=== PATIENT | female | born 1965 | race American Indian/Alaskan Native ===

== ENCOUNTER 2019-07-02 23:15 | Inpatient (IN) | payer SELFPAY ==
[2019-07-03 00:08] LABS: Basophils % (Auto) 0.5 % (0.0-1.8); Eosinophils % (Auto) 0.3 % (0.0-4.3); Hematocrit 23.9 % (30.3-42.9); Lymphocytes # (Auto) 2.7 K/mm3 (1.2-5.4); Lymphocytes % (Auto) 25.5 % (13.4-35.0); Mean Corpuscular HGB Conc 33 % (30-34); Mean Corpuscular Volume 93 fl (79-97); Monocytes # (Auto) 0.4 K/mm3 (0.0-0.8); Platelet Count 305 K/mm3 (140-440); Red Blood Count 2.57 M/mm3 (3.65-5.03); Red Cell Distribution Width 13.3 % (13.2-15.2)
[2019-07-03 00:09] LABS: Basophils # (Auto) 0.1 K/mm3 (0.0-0.1)
[2019-07-03 00:11] LABS: BUN/Creatinine Ratio 12; Blood Urea Nitrogen 7 mg/dL (7-17); Calcium 8.3 mg/dL (8.4-10.2); Hemolysis Index 27
[2019-07-03] MEDS ORDERED: SODIUM CHLORIDE 0.9% 1000 ML 1,000 ML IV ONE (01:50)
--- NOTE | 2019-07-03 01:56 | Emergency Department Report ---
HPI - General Chief Complaint: GI Bleed Time Seen by Provider: 07/03/19 01:41 - [facility] HPI: Room 24 The patient is a 54-year-old female presented with a chief complaint of rectal bleeding. Patient was discharged earlier this afternoon after being admitted for GI bleed. The patient was instructed to return to the emergency room should her bleeding return. The patient states this afternoon while out running errands she had to use the commode 3 times and she passed blood with clots all 3 times. The patient states she went home again feel dizzy, weak and nauseous without vomiting. Patient states she had 2 more episodes of passing blood with clots at home prompting her to come to the emergency department Location: [See above] Duration: [See above] Quality: [See above] Severity: [See above] Timing: [See above] Context: [See above] Modifying factors: [See above] Associated signs and symptoms: [see above] ED Past Medical Hx - Past Medical History Previous Medical History?: Yes Hx Diabetes: Yes - Surgical History Past Surgical History?: Yes Hx Cholecystectomy: Yes - Family History Family history: no significant - Social History Smoking Status: Never Smoker Substance Use Type: None - Medications Home Medications: Home Medications Medication Instructions Recorded Confirmed Last Taken Type Pantoprazole [Protonix TAB] 40 mg PO DAILY #30 tablet 07/02/19 Unknown Rx metFORMIN [Glucophage] 500 mg PO BIDDIAB #30 tablet 07/02/19 Unknown Rx ED Review of Systems ROS: Stated complaint: RECTAL BLEEDING Other details as noted in HPI Constitutional: weakness Eyes: denies: eye pain ENT: denies: throat pain Respiratory: no symptoms reported Cardiovascular: denies: chest pain Endocrine: no symptoms reported Gastrointestinal: abdominal pain, nausea, hematochezia. denies: vomiting Genitourinary: denies: dysuria Musculoskeletal: denies: back pain Neurological: denies: headache Physical Exam - Physical Exam Vital Signs: Vital Signs 07/02/19 23:23 Temperature 98.1 F Pulse Rate 87 Respiratory 20 Rate Blood Pressure 124/65 O2 Sat by Pulse 97 Oximetry Physical Exam: GENERAL: The patient is well-developed well-nourished female lying on stretcher not appearing to be in acute distress. [] HEENT: Normocephalic. Atraumatic. Extraocular motions are intact. Patient has moist mucous membranes. NECK: Supple. Trachea midline CHEST/LUNGS: Clear to auscultation. There is no respiratory distress noted. HEART/CARDIOVASCULAR: Regular. There is no tachycardia. There is no gallop rub or murmur. ABDOMEN: Abdomen is soft, with mild discomfort to palpation right upper quadrant. Patient has normal bowel sounds. There is no abdominal distention. SKIN: There is no rash. There is no edema. There is no diaphoresis. NEURO: The patient is awake, alert, and oriented. The patient is cooperative. The patient has no focal neurologic deficits. The patient has normal speech and gait. MUSCULOSKELETAL: There is no evidence of acute injury. ED Course Vital Signs 07/02/19 23:23 Temperature 98.1 F Pulse Rate 87 Respiratory 20 Rate Blood Pressure 124/65 O2 Sat by Pulse 97 Oximetry ED Medical Decision Making - Lab Data Result diagrams: 07/02/19 23:44 07/02/19 23:44 - Differential Diagnosis GI bleed Critical care attestation.: If time is entered above; I have spent that time in minutes in the direct care of this critically ill patient, excluding procedure time. ED Disposition Clinical Impression: Lower GI bleeding, Symptomatic anemia Disposition: OP ADMIT IP TO THIS HOSP Is pt being admited?: Yes Does the pt Need Aspirin: No Condition: Fair Referrals: PRIMARY CARE,MD [Primary Care Provider] - 3-5 Days Time of Disposition: 01:57 (hospitalist paged (Dr Mcmanus))
[2019-07-03] MEDS ORDERED: DEXTROSE 50% IN WATER (25GM) 50 ML SYRINGE IV PRN (02:58)
[2019-07-03] MEDS: INSULIN REGULAR, HUMAN 100 UNITS/1 ML SUB-Q SCH ×6 (03:54→22:57)
[2019-07-03] MEDS: ONDANSETRON 4 MG/2 ML INJ IV PRN (03:55)
[2019-07-03] MEDS: PANTOPRAZOLE 40 MG INJ IV SCH ×3 (04:56→21:22)
--- NOTE | 2019-07-03 05:08 | History and Physical Report ---
CHIEF COMPLAINT: Rectal bleeding. HISTORY OF PRESENT ILLNESS: The patient is a 54-year-old female who was recently discharged from hospital on 07/02/2019 after she presented 24 hours earlier for rectal bleeding and states she was seen by the buffing wheel inspector who did a colonoscopy and then she said that her bleeding reduced in intensity and she was discharged and given a prescription and she had just filled the prescription and was about to start taking the medications when the bleeding started again on 07/02/2019 and she came right back to the Emergency Room and was then presented for admission. There was no history of nausea or vomiting and no history of abdominal pain. The patient states she did not take any nonsteroidal anti-inflammatory agent or drink any alcohol. There is no history of shortness of breath or chest pain, and the patient said that her rectal bleeding was coming out of clots of blood and occurred mainly when she tries to move her bowel. There is history of associated dizziness and weakness and nausea, but no vomiting. PAST MEDICAL HISTORY: Pertinent for diabetes mellitus. PAST SURGICAL HISTORY: Pertinent for cholecystectomy. FAMILY HISTORY: Noncontributory. SOCIAL HISTORY: The patient does not smoke, does not drink alcohol and does not use illicit drug. MEDICATIONS: The patient is on pantoprazole 40 mg daily and Glucophage 500 mg twice daily. ALLERGIES: There are no known drug allergies. REVIEW OF SYSTEMS: CONSTITUTIONAL: There is no fever, no chills, no diaphoresis. HEENT: There is no headache or sore throat. CARDIOVASCULAR SYSTEM: There is no chest pain or orthopnea. RESPIRATORY SYSTEM: There is no shortness of breath or cough. GASTROINTESTINAL SYSTEM: There is nausea, but no vomiting, no abdominal pain, and no diarrhea or constipation, but there is rectal bleeding. NEUROLOGICAL SYSTEM: There is weakness and there is dizziness, but no altered mental status. MUSCULOSKELETAL SYSTEM: There is no joint pain or swelling. DERMATOLOGICAL SYSTEM: There is no skin rash or itching. GENITOURINARY SYSTEM: There is no dysuria, hematuria, or flank pain. Rest of system review is normal. PHYSICAL EXAMINATION: GENERAL: At the time of exam, the patient was found to be alert, oriented x 3 and not in acute distress. VITAL SIGNS: At the initial time of presentation showed temperature of 98.1 degrees Fahrenheit, pulse of 87, respirations 20, blood pressure 124/65, O2 sat of 97% on room air. HEENT: Showed pupils to be equal, round, reactive to light and accommodating. Extraocular muscles are intact. NECK: Supple with no JVD or carotid bruit. CARDIOVASCULAR SYSTEM: Showed normal first and second heart sounds with no gallops or murmurs. RESPIRATORY SYSTEM: Show good air entry on both sides of the lungs with no abnormal breath sounds. GASTROINTESTINAL SYSTEM: Show abdomen to be full, soft, nontender with no organomegaly or rigidity. NEUROLOGIC: Shows no focal deficit. MUSCULOSKELETAL SYSTEM: Show no joint swelling or tenderness. DERMATOLOGICAL SYSTEM: Showing no skin rash or itching. GENITOURINARY SYSTEM: Show no costovertebral angle tenderness. PERTINENT LABORATORY AND IMAGING STUDIES: The patient has CBC done with normal white count, low hemoglobin of 8.0 and low hematocrit of 23.9 and rest of CBC differential was unremarkable. The patient's chemistry show elevated blood glucose level of 283 DIAGNOSES: 1. Rectal bleeding. 2. Diabetes mellitus with hyperglycemia. PLAN OF CARE: 1. The patient will be admitted to telemetry. 2. The patient will remain n.p.o. until seen by the buffing wheel inspector. 3. The patient will have Gastroenterology consult with [facility] with the name of Dr. Joo Choi listed ( same doctor that did the procedure on the patient). 4. The patient will have hemoglobin and hematocrit checked every 6 hours x 3 more levels. 5. The patient will be on Protonix 40 mg IV twice daily. 6. The patient will be on IV normal saline running at 125 mL an hour. 7. The patient will be on IV morphine 2 mg every 4 hours as needed for pain and IV Zofran 4 mg every 8 hours for nausea and vomiting. 8. The patient will be on Accu-Chek q. 4 hours followed by low-dose sliding scale using regular insulin coverage. 9. The patient will be on oxygen by nasal cannula at 2 liters per minute. JOB# [id number] OCN/NTS MTDD
[2019-07-03] MEDS: SODIUM CHLORIDE 0.9% 1000 ML 1,000 ML IV SCH (07:04)
[2019-07-03 07:46] LABS: Hemoglobin 6.5 gm/dl (10.1-14.3)
[2019-07-03 07:53] LABS: Hematocrit 19.4 % (30.3-42.9)
[2019-07-03] MEDS ORDERED: SODIUM CHLORIDE 0.9% 500 ML 500 ML IV NR (07:58)
--- NOTE | 2019-07-03 11:58 | Progress Note ---
Assessment and Plan - Patient Problems (1) Lower GI bleeding Current Visit: Yes Status: Acute Plan to address problem: Patient lower GI bleeding exact etiology unknown. Consult GI to evaluate etiology rectal polyp. We'll currently transfuse patient 1 unit of packed red blood cells and follow serial H&H posttransfusion. Otherwise patient hemodialys is stable now. (2) Symptomatic anemia Current Visit: Yes Status: Acute Plan to address problem: Transfuse as indicated above. Follow-up GI evaluation. (3) Hyperglycemia due to type 2 diabetes mellitus Current Visit: No Status: Acute Plan to address problem: Blood sugars fair control. Would titrate accordingly. Has sliding-scale insulin now we'll add low-dose long-acting insulin over p.m. History Interval history: Patient 54-year-old presented with rectal bleeding and symptomatic anemia today. Patient was recently discharged yesterday from hospital for rectal bleeding had colonoscopy which show polyps. Patient had 3 bowel movements and all 3 we'll feel with clots of blood. Patient decided to come back to emergency room and was admitted. Hospital course complicated last night over drop in H&H. This morning patient's hemoglobin and hematocrit is 6 and 19. And we'll transfuse at this time. Otherwise hemodynamically stable. Hospitalist Physical - Constitutional Vitals: Temp Pulse Resp BP Pulse Ox 98.8 F 75 18 134/61 93 07/03/19 08:18 07/03/19 08:18 07/03/19 08:18 07/03/19 08:18 07/03/19 08:18 General appearance: Present: no acute distress, well-nourished - EENT Eyes: Present: PERRL, EOM intact. Absent: scleral icterus, conjunctival injection, exopthalmos ENT: hearing intact, clear oral mucosa, dentition normal - Neck Neck: Present: supple - Respiratory Respiratory: bilateral: CTA - Cardiovascular Rhythm: regular - Extremities Extremities: no ischemia, pulses intact, pulses symmetrical, No edema, normal temperature, normal color, Full ROM Peripheral Pulses: within normal limits - Abdominal General gastrointestinal: soft, non-tender, non-distended, normal bowel sounds, no hepatomegaly, no splenomegaly, no mass - Integumentary Integumentary: Present: clear, warm, dry - Psychiatric Psychiatric: appropriate mood/affect, intact judgment & insight, memory intact - Neurologic Neurologic: CNII-XII intact, moves all extremities, gait normal Results - Labs CBC & Chem 7: 07/03/19 07:12 07/02/19 23:44 Labs: Laboratory Last Values WBC 10.4 K/mm3 (4.5-11.0) 07/02/19 23:44 RBC 2.57 M/mm3 (3.65-5.03) L 07/02/19 23:44 Hgb 6.5 gm/dl (10.1-14.3) L 07/03/19 07:12 Hct 19.4 % (30.3-42.9) L* 07/03/19 07:12 MCV 93 fl (79-97) 07/02/19 23:44 MCH 31 pg (28-32) 07/02/19 23:44 MCHC 33 % (30-34) 07/02/19 23:44 RDW 13.3 % (13.2-15.2) 07/02/19 23:44 Plt Count 305 K/mm3 (140-440) 07/02/19 23:44 Lymph % (Auto) 25.5 % (13.4-35.0) 07/02/19 23:44 [place] % (Auto) 4.0 % (0.0-7.3) 07/02/19 23:44 Eos % (Auto) 0.3 % (0.0-4.3) 07/02/19 23:44 Baso % (Auto) 0.5 % (0.0-1.8) 07/02/19 23:44 Lymph # 2.7 K/mm3 (1.2-5.4) 07/02/19 23:44 [place] # 0.4 K/mm3 (0.0-0.8) 07/02/19 23:44 Eos # 0.0 K/mm3 (0.0-0.4) 07/02/19 23:44 Baso # 0.1 K/mm3 (0.0-0.1) 07/02/19 23:44 Seg Neutrophils % 69.7 % (40.0-70.0) 07/02/19 23:44 Seg Neutrophils # 7.3 K/mm3 (1.8-7.7) 07/02/19 23:44 Sodium 141 mmol/L (137-145) 07/02/19 23:44 Potassium 4.1 mmol/L (3.6-5.0) 07/02/19 23:44 Chloride 105.7 mmol/L (98-107) 07/02/19 23:44 Carbon Dioxide 25 mmol/L (22-30) 07/02/19 23:44 14 mmol/L 07/02/19 23:44 BUN 7 mg/dL (7-17) 07/02/19 23:44 0.6 mg/dL (0.7-1.2) L 07/02/19 23:44 Estimated GFR > 60 ml/min 07/02/19 23:44 12 % 07/02/19 23:44 Glucose 283 mg/dL (65-100) H 07/02/19 23:44 POC Glucose 269 (70-105) H 07/03/19 06:24 Calcium 8.3 mg/dL (8.4-10.2) L 07/02/19 23:44 Blood Type B POSITIVE 07/03/19 08:08 Antibody Screen Negative 07/03/19 08:08 Crossmatch See Detail 07/03/19 08:08 Active Medications - Current Medications Current Medications: Generic Name Dose Route Start Last Admin Trade Name Freq PRN Reason Stop Dose Admin Dextrose 50 ml 07/03/19 02:58 D50w (25gm) Syringe IV PRN PRN Hypoglycemia Sodium Chloride 1,000 mls @ 125 mls/hr 07/03/19 03:00 07/03/19 07:04 Nacl 0.9% 1000 Ml IV 125 mls/hr DIRECT LITA Administration Sodium Chloride 500 mls @ 0 mls/hr 07/03/19 07:58 Nacl 0.9% 500 Ml IV 07/03/19 13:00 ONCE NR As Directed Insulin Human Regular 0 units 07/03/19 03:00 07/03/19 11:53 Humulin R SUB-Q Not Given Q4HR LITA Protocol Morphine Sulfate 2 mg 07/03/19 03:01 Morphine IV Q4H PRN Pain, Moderate (4-6) Ondansetron HCl 4 mg 07/03/19 03:02 07/03/19 03:55 Zofran IV 4 mg Q8H PRN Administration Nausea And Vomiting Pantoprazole Sodium 40 mg 07/03/19 04:00 07/03/19 04:56 Protonix IV 40 mg BID LITA Administration
--- NOTE | 2019-07-03 12:06 | Gastroenterology Consultation ---
History of Present Illness - Reason for Consult Consult date: 07/03/19 GI bleed Requesting physician: SABINE TARIQ - History of Present Illness This is a 54 yo female with recent admission for lower GI bleed s/p EGD and colonoscopy readmitted within 24 hr for recurrent bleeding with passing bright red blood per rectum with clots. She underwent colonoscopy showing di verticulosis and blood in the colon and thought to have diverticular bleed. She was stable without recurrent bleeding and was discharged. She had multiple episode of bloody stools with clots post discharge along with weakness, fatigue, and dizziness. No abdominal pain, or nausea/vomiting. Medication list reviewed. Past History Past Medical History: other (diverticulosis) Past Surgical History: No surgical history Social history: lives with family Family history: no significant family history Medications and Allergies Allergies Allergy/AdvReac Type Severity Reaction Status Date / Time No Known Allergies Allergy Unverified 09/14/18 06:03 Home Medications Medication Instructions Recorded Confirmed Last Taken Type Pantoprazole [Protonix TAB] 40 mg PO DAILY #30 tablet 07/02/19 Unknown Rx metFORMIN [Glucophage] 500 mg PO BIDDIAB #30 tablet 07/02/19 Unknown Rx Active Meds: Active Medications Dextrose (D50w (25gm) Syringe) 50 ml IV PRN PRN PRN Reason: Hypoglycemia Sodium Chloride (Nacl 0.9% 1000 Ml) 1,000 mls @ 125 mls/hr IV DIRECT [facility] Last Admin: 07/03/19 07:04 Dose: 125 mls/hr Documented by: Sodium Chloride (Nacl 0.9% 500 Ml) 500 mls @ 0 mls/hr IV ONCE NR Stop: 07/03/19 13:00 Insulin Glargine (Lantus) 10 units SUB-Q QHS [facility] Insulin Human Regular (Humulin R) 0 units SUB-Q Q4HR [facility]; Protocol Last Admin: 07/03/19 11:53 Dose: Not Given Documented by: Morphine Sulfate (Morphine) 2 mg IV Q4H PRN PRN Reason: Pain, Moderate (4-6) Ondansetron HCl (Zofran) 4 mg IV Q8H PRN PRN Reason: Nausea And Vomiting Last Admin: 07/03/19 03:55 Dose: 4 mg Documented by: Pantoprazole Sodium (Protonix) 40 mg IV BID LITA Last Admin: 07/03/19 04:56 Dose: 40 mg Documented by: Review of Systems - Review of Systems All systems: negative Constitutional: no weight loss, no weight gain Cardiovascular: shortness of breath, no chest pain Gastrointestinal: BRBPR, hematochezia, no abdominal pain, no nausea Neurological: weakness Exam - Constitutional Vital Signs: Temp Pulse Resp BP Pulse Ox 98.8 F 75 18 134/61 93 07/03/19 08:18 07/03/19 08:18 07/03/19 08:18 07/03/19 08:18 07/03/19 08:18 General appearance: no acute distress - EENT Eyes: EOM intact ENT: hearing intact - Neck Neck: supple - Respiratory Respiratory effort: normal - Cardiovascular Rhythm: regular Heart Sounds: Present: S1 & S2 Extremities: No edema - Gastrointestinal General gastrointestinal: Present: soft, non-tender, non-distended, normal bowel sounds - Integumentary Integumentary: Present: clear, warm - Neurologic Neurological: alert and oriented x3 - Labs CBC & Chem 7: 07/03/19 12:27 07/02/19 23:44 Lab Results: Laboratory Results - last 24 hr 07/02/19 07/02/19 07/03/19 23:44 23:44 03:54 WBC 10.4 RBC 2.57 L Hgb 8.0 L Hct 23.9 L MCV 93 MCH 31 MCHC 33 RDW 13.3 Plt Count 305 Lymph % (Auto) 25.5 [place] % (Auto) 4.0 Eos % (Auto) 0.3 Baso % (Auto) 0.5 Lymph # 2.7 [place] # 0.4 Eos # 0.0 Baso # 0.1 Seg Neutrophils % 69.7 Seg Neutrophils # 7.3 Sodium 141 Potassium 4.1 Chloride 105.7 Carbon Dioxide 25 Anion Gap 14 BUN 7 Creatinine 0.6 L Estimated GFR > 60 BUN/Creatinine Ratio 12 Glucose 283 H POC Glucose 279 H Calcium 8.3 L Blood Type Antibody Screen Crossmatch 07/03/19 07/03/19 07/03/19 06:24 07:12 08:08 WBC RBC Hgb 6.5 L Hct 19.4 L* MCV MCH MCHC RDW Plt Count Lymph % (Auto) [place] % (Auto) Eos % (Auto) Baso % (Auto) Lymph # [place] # Eos # Baso # Seg Neutrophils % Seg Neutrophils # Sodium Potassium Chloride Carbon Dioxide Anion Gap BUN Creatinine Estimated GFR BUN/Creatinine Ratio Glucose POC Glucose 269 H Calcium Blood Type B POSITIVE Antibody Screen Negative Crossmatch See Detail Assessment and Plan This is a 54 yo female with recent admission for lower GI bleed s/p EGD and colonoscopy readmitted within 24 hr for recurrent bleeding with passing bright red blood per rectum with clots. Colonoscopy from last admission. FINDINGS: * Small amount of red blood in the TI * 3cm sessile polyp in the cecum, 5cc saline injected underneath the polyp to lift, then hot snare used to perform polypectomy in a PIECEMEAL fashion * 5mm sessile polyp transverse colon removed with cold snare polypectomy * 4mm sessile polyp sigmoid colon removed with cold snare polypectomy * Large amount of semi-old blood throughout the entire colon * Scattered diverticulosis throughout the whole colon # Lower Gi bleed - concerning for recurrent diverticular bleed. - Hgb down to 6.5 from prior at 8 yesterday prior to discharge. - HD stable. Rec - will order CTA a/p to evaluate for active bleeding and possible embolization may need to be done in case of active bleeding. - monitor H/H post transfusion. - keep NPO. - will follow.
[2019-07-03 13:05] LABS: Hematocrit 18.3 % (30.3-42.9); Hemoglobin 5.9 gm/dl (10.1-14.3)
--- NOTE | 2019-07-03 19:12 | Cat Scan Report ---
CTA ABDOMEN AND PELVIS INDICATION: lower GI bleed, diverticular bleed. TECHNIQUE: Axial CT images were obtained through the abdomen and pelvis before and after after injection of 100 mL Omnipaque 350 IV contrast. 3 plane MIP reconstructions were produced. All CT scans at this [facility] are performed using CT dose reduction for ALARA by means of automated exposure control. COMPARISON: CTA abdomen and pelvis from 06/30/2019. FINDINGS: VASCULAR FINDINGS: AORTA: No significant abnormality. CELIAC TRUNK: No significant abnormality. SUPERIOR MESENTERIC ARTERY: No significant abnormality. RENAL ARTERIES: No significant abnormality. INFERIOR MESENTERIC ARTERY: No significant abnormality. RIGHT ILIAC ARTERIES: No significant abnormality.. LEFT ILIAC ARTERIES: No significant abnormality.. FEMORAL ARTERIES: No significant abnormality. NONTARGET STRUCTURES: LOWER CHEST: No significant abnormality. ABDOMEN: No active extravasation of contrast is noted along the GI tract to suggest an active GI blee d. No additional significant abnormality. PELVIS: No active extravasation of contrast is noted along the GI tract to suggest an active GI bleed . The uterus is similarly enlarged. SKELETAL: There are degenerative changes throughout the spine and pelvis. No acute abnormality ADDITIONAL FINDINGS: None. IMPRESSION: No CT evidence of an active GI bleed or other acute vascular abnormality. Signer Name: Dwain Callahan MD Signed: 07/03/2019 7:08 PM Workstation Name: [id number]
[2019-07-03 21:06] LABS: Hematocrit 39.7 % (30.3-42.9)
[2019-07-03] MEDS: INSULIN GLARGINE 100 UNITS/ML SUB-Q SCH (22:56)
[2019-07-04] MEDS: INSULIN REGULAR, HUMAN 100 UNITS/1 ML SUB-Q SCH ×6 (02:00→22:36)
[2019-07-04] MEDS: ONDANSETRON 4 MG/2 ML INJ IV PRN (07:23)
[2019-07-04] MEDS: SODIUM CHLORIDE 0.9% 1000 ML 1,000 ML IV SCH ×2 (07:27→20:34)
[2019-07-04] MEDS: PANTOPRAZOLE 40 MG INJ IV SCH ×3 (09:07→22:37)
[2019-07-04 09:56] LABS: Basophils # (Auto) 0.1 K/mm3 (0.0-0.1); Basophils % (Auto) 0.5 % (0.0-1.8); Eosinophils % (Auto) 0.2 % (0.0-4.3); Lymphocytes # (Auto) 2.8 K/mm3 (1.2-5.4); Mean Corpuscular HGB Conc 33 % (30-34); Mean Corpuscular Volume 93 fl (79-97); Monocytes # (Auto) 0.8 K/mm3 (0.0-0.8); Monocytes % (Auto) 5.3 % (0.0-7.3); Platelet Count 292 K/mm3 (140-440); Red Cell Distribution Width 13.5 % (13.2-15.2)
[2019-07-04 10:33] LABS: Hematocrit 16.7 % (30.3-42.9); Hemoglobin 5.5 gm/dl (10.1-14.3)
[2019-07-04] MEDS ORDERED: SODIUM CHLORIDE 0.9% 500 ML 500 ML IV NR (11:21)
--- NOTE | 2019-07-04 13:06 | Gastroenterology Progress Note ---
Assessment and Plan This is a 54 yo female with recent admission for lower GI bleed s/p EGD and colonoscopy readmitted within 24 hr for recurrent bleeding with passing bright red blood per rectum with clots. Colonoscopy from last admission. FINDINGS: * Small amount of red blood in the TI * 3cm sessile polyp in the cecum, 5cc saline injected underneath the polyp to lift, then hot snare used to perform polypectomy in a PIECEMEAL fashion * 5mm sessile polyp transverse colon removed with cold snare polypectomy * 4mm sessile polyp sigmoid colon removed with cold snare polypectomy * Large amount of semi-old blood throughout the entire colon * Scattered diverticulosis throughout the whole colon # Lower Gi bleed - concerning for recurrent diverticular bleed. - Hgb down again to 5.5 today. Suspect Hgb of 13 this morning may be false number. - continues to have bleeding per rectum. - HD stable. - CTA on 07/03/2019 negative for signs of active bleeding. Rec - will order NM bleeding scan to be done urgently. - receiving 2 units of PRBC today. - monitor H/H post transfusion. - clear liquid diet. - will follow. - surgery consulted. Subjective Date of service: 07/04/19 Interval history: Patient received 1 unit of PRBC and had CTA, which came back negative. Patient continues to pass bright red blood per rectum with 3 episodes overnight and 3 episodes this morning. Last one about 2 hours ago. No abdominal pain or nausea/vomiting. Objective - Constitutional Vitals: Temp Pulse Resp BP Pulse Ox 99.0 F 78 18 133/59 100 07/04/19 13:00 07/04/19 13:00 07/04/19 13:00 07/04/19 13:07/04/19 13:00 - EENT ENT: hearing intact - Neck Neck: supple, normal ROM - Respiratory Respiratory effort: normal Respiratory: bilateral: CTA - Cardiovascular Rhythm: regular - Extremities Extremities: pulses intact, No edema, normal color, Full ROM - Gastrointestinal General gastrointestinal: Present: soft, non-tender, non-distended, normal bowel sounds - Integumentary Integumentary: Present: clear, warm, dry - Neurologic Neurological: alert and oriented x3 - Labs CBC & Chem 7: 07/04/19 09:31 07/02/19 23:44 Labs: Laboratory Results - last 24 hr 07/03/19 07/03/19 07/03/19 08:08 12:27 16:46 WBC RBC Hgb 5.9 L* Hct 18.3 L* MCV MCH MCHC RDW Plt Count Lymph % (Auto) [place] % (Auto) Eos % (Auto) Baso % (Auto) Lymph # [place] # Eos # Baso # Seg Neutrophils % Seg Neutrophils # POC Glucose 131 H Blood Type B POSITIVE Antibody Screen Negative Crossmatch See Detail 07/03/19 07/03/19 07/04/19 20:31 22:28 02:36 WBC RBC Hgb 13.0 D Hct 39.7 D MCV MCH MCHC RDW Plt Count Lymph % (Auto) [place] % (Auto) Eos % (Auto) Baso % (Auto) Lymph # [place] # Eos # Baso # Seg Neutrophils % Seg Neutrophils # POC Glucose 281 H 251 H Blood Type Antibody Screen Crossmatch 07/04/19 07/04/19 07/04/19 06:19 09:31 11:45 WBC 14.7 H RBC 1.80 L Hgb 5.5 L* D Hct 16.7 L* D MCV 93 MCH 31 MCHC 33 RDW 13.5 Plt Count 292 Lymph % (Auto) 19.0 [place] % (Auto) 5.3 Eos % (Auto) 0.2 Baso % (Auto) 0.5 Lymph # 2.8 [place] # 0.8 Eos # 0.0 Baso # 0.1 Seg Neutrophils % 75.0 H Seg Neutrophils # 11.0 H POC Glucose 210 H 238 H Blood Type Antibody Screen Crossmatch - Imaging CT scan: report reviewed
--- NOTE | 2019-07-04 13:35 | Consultation ---
History of Present Illness Consult date: 07/04/19 Reason for consult: other (GI bleed) Chief complaint: persistent GI bleed - History of present illness History of present illness: 54 year old female presents to ED after a recent admission for GI bleeding that could not be localized to likely be from a diverticular bleed. Pt has diverticulum through out the entire colon and after 2 negative CTA no specific location could be identified. She was readmitted after a 24 hour discharge to home with more bleeding. She has received a unit of blood and is currently scheduled to get 2 more. She has had several bowel movements with blood clots since yesterday, the last being about 2 hours ago. she denies pain, n/v. Past History Past Medical History: other (diverticulosis) Past Surgical History: No surgical history Social history: lives with family Family history: no significant family history Medications and Allergies Allergies Allergy/AdvReac Type Severity Reaction Status Date / Time No Known Allergies Allergy Unverified 09/14/18 06:03 Home Medications Medication Instructions Recorded Confirmed Last Taken Type Pantoprazole [Protonix TAB] 40 mg PO DAILY #30 tablet 07/02/19 Unknown Rx metFORMIN [Glucophage] 500 mg PO BIDDIAB #30 tablet 07/02/19 Unknown Rx Active Meds: Active Medications Dextrose (D50w (25gm) Syringe) 50 ml IV PRN PRN PRN Reason: Hypoglycemia Sodium Chloride (Nacl 0.9% 1000 Ml) 1,000 mls @ 125 mls/hr IV DIRECT LITA Last Admin: 07/04/19 07:27 Dose: 125 mls/hr Documented by: Sodium Chloride (Nacl 0.9% 500 Ml) 500 mls @ 0 mls/hr IV ONCE NR Stop: 07/04/19 23:59 Insulin Glargine (Lantus) 10 units SUB-Q QHS LITA Last Admin: 07/03/19 22:56 Dose: 10 units Documented by: Insulin Human Regular (Humulin R) 0 units SUB-Q Q4HR LITA; Protocol Last Admin: 07/04/19 09:07 Dose: Not Given Documented by: Morphine Sulfate (Morphine) 2 mg IV Q4H PRN PRN Reason: Pain, Moderate (4-6) Ondansetron HCl (Zofran) 4 mg IV Q8H PRN PRN Reason: Nausea And Vomiting Last Admin: 07/04/19 07:23 Dose: 4 mg Documented by: Pantoprazole Sodium (Protonix) 40 mg IV BID LITA Last Admin: 07/04/19 09:07 Dose: 40 mg Documented by: Review of Systems - Cardiovascular no chest pain, no palpitations - Respiratory no shortness of breath - Gastrointestinal other (stool with clots of blood), no abdominal pain, no nausea, no vomiting Exam Vital Signs Temp Pulse Resp BP Pulse Ox 98.1 F 87 20 124/65 97 07/02/19 23:23 07/02/19 23:23 07/02/19 23:23 07/02/19 23:23 07/02/19 23:23 - General physical appearance Positive: well developed, no distress - Respiratory Positive: normal expansion, normal respiratory effort - Abdomen Abdomen: Present: soft, other (obese). Absent: tender, guarding, rigid Results - Labs 07/04/19 09:31 07/02/19 23:44 Abnormal lab results 07/03/19 07/03/19 07/03/19 Range/Units 08:08 16:46 22:28 WBC (4.5-11.0) K/mm3 RBC (3.65-5.03) M/mm3 Hgb (10.1-14.3) gm/dl Hct (30.3-42.9) % Seg Neutrophils % (40.0-70.0) % Seg Neutrophils # (1.8-7.7) K/mm3 POC Glucose 131 H 281 H (70-105) Crossmatch See Detail 07/04/19 07/04/19 07/04/19 Range/Units 02:36 06:19 09:31 WBC 14.7 H (4.5-11.0) K/mm3 RBC 1.80 L (3.65-5.03) M/mm3 Hgb 5.5 L* D (10.1-14.3) gm/dl Hct 16.7 L* D (30.3-42.9) % Seg Neutrophils % 75.0 H (40.0-70.0) % Seg Neutrophils # 11.0 H (1.8-7.7) K/mm3 POC Glucose 251 H 210 H (70-105) Crossmatch 07/04/19 Range/Units 11:45 WBC (4.5-11.0) K/mm3 RBC (3.65-5.03) M/mm3 Hgb (10.1-14.3) gm/dl Hct (30.3-42.9) % Seg Neutrophils % (40.0-70.0) % Seg Neutrophils # (1.8-7.7) K/mm3 POC Glucose 238 H (70-105) Crossmatch Assessment and Plan 54 year old female with persistent lower GI bleed, exact location not yet iden tified. Stable and afebrile. Clinically active but slow. Unlikely to be a rapid bleed as she has had two negative CTA, and her H/H over the last 48 hours is not taken a drastic plummet. Hb of 13 yesterday likely erroneous as it was after 1 unit of PRBC and a pre-transfusion Hb of 5.9. This morning she was 5.5 with no change in her hemodynamics. GI is also following the patient. A bleeding scan has been ordered as well as [address] Perez said she would have Dr. Leos (IR) review previous studies and be aware of the patient. If she continues to bleed should consult with IR about an interrogative therapeutic angio in an attempt to localized and treat bleed conservatively, or at least localize bleed to a particular area of the colon so that if she requires surgical intervention, only the affected part of the colon would need to be removed. there is a high morbidity/mortality with emergent total colectomies. will conitnue to follow.
--- NOTE | 2019-07-04 14:05 | Progress Note ---
Assessment and Plan - Patient Problems (1) Lower GI bleeding Current Visit: Yes Status: Acute Plan to address problem: Patient with GI blood loss anemia. CT scan no evidence of bleeding on exam. Possible diverticular bleed. Armando wave. Patient had decreased hemoglobin from 13 to 5 . Possible erroneous lab. Obtain CBC and possible transfusion to newspaper blood cells. Not hurt because patient is still 5. We'll consult just to make aware of patient's possible intervention. (2) Symptomatic anemia Current Visit: Yes Status: Acute Plan to address problem: Transfuse as indicated above. Follow-up GI evaluation. (3) Hyperglycemia due to type 2 diabetes mellitus Current Visit: No Status: Acute Plan to address problem: She has upper control blood pressure varying well we'll continue to monitor. The medical management. History Interval history: Patient appears hemodynamically stable. No new changes in bleeding. Hospital course was complicated over p.m. by abnormal lab of the hematocrit of 13. Now down to 5. HD stable remained stable. Hospitalist Physical - Constitutional Vitals: Temp Pulse Resp BP Pulse Ox 99.0 F 78 18 133/59 100 07/04/19 13:00 07/04/19 13:00 07/04/19 13:00 07/04/19 13:00 07/04/19 13:00 General appearance: Present: no acute distress, well-nourished - EENT Eyes: Present: PERRL, EOM intact ENT: hearing intact, clear oral mucosa, dentition normal, oropharyngeal erythema, no poor dentition - Neck Neck: Present: supple, normal ROM. Absent: enlarged thyroid, masses or JVD - Respiratory Respiratory: bilateral: CTA - Cardiovascular Rhythm: regular - Extremities Extremities: no ischemia, pulses intact, pulses symmetrical, No edema, normal temperature, normal color, Full ROM Peripheral Pulses: within normal limits - Abdominal General gastrointestinal: soft, non-tender, non-distended, normal bowel sounds, no hepatomegaly, no splenomegaly - Integumentary Integumentary: Present: clear, warm, dry - Psychiatric Psychiatric: appropriate mood/affect, intact judgment & insight - Neurologic Neurologic: CNII-XII intact, moves all extremities Results - Labs CBC & Chem 7: 07/04/19 09:31 07/02/19 23:44 Labs: Laboratory Last Values WBC 14.7 K/mm3 (4.5-11.0) H 07/04/19 09:31 RBC 1.80 M/mm3 (3.65-5.03) L 07/04/19 09:31 Hgb 5.5 gm/dl (10.1-14.3) L* D 07/04/19 09:31 Hct 16.7 % (30.3-42.9) L* D 07/04/19 09:31 MCV 93 fl (79-97) 07/04/19 09:31 MCH 31 pg (28-32) 07/04/19 09:31 MCHC 33 % (30-34) 07/04/19 09:31 RDW 13.5 % (13.2-15.2) 07/04/19 09:31 Plt Count 292 K/mm3 (140-440) 07/04/19 09:31 Lymph % (Auto) 19.0 % (13.4-35.0) 07/04/19 09:31 [place] % (Auto) 5.3 % (0.0-7.3) 07/04/19 09:31 Eos % (Auto) 0.2 % (0.0-4.3) 07/04/19 09:31 Baso % (Auto) 0.5 % (0.0-1.8) 07/04/19 09:31 Lymph # 2.8 K/mm3 (1.2-5.4) 07/04/19 09:31 [place] # 0.8 K/mm3 (0.0-0.8) 07/04/19 09:31 Eos # 0.0 K/mm3 (0.0-0.4) 07/04/19 09:31 Baso # 0.1 K/mm3 (0.0-0.1) 07/04/19 09:31 Seg Neutrophils % 75.0 % (40.0-70.0) H 07/04/19 09:31 Seg Neutrophils # 11.0 K/mm3 (1.8-7.7) H 07/04/19 09:31 Sodium 141 mmol/L (137-145) 07/02/19 23:44 Potassium 4.1 mmol/L (3.6-5.0) 07/02/19 23:44 Chloride 105.7 mmol/L (98-107) 07/02/19 23:44 Carbon Dioxide 25 mmol/L (22-30) 07/02/19 23:44 14 mmol/L 07/02/19 23:44 BUN 7 mg/dL (7-17) 07/02/19 23:44 0.6 mg/dL (0.7-1.2) L 07/02/19 23:44 Estimated GFR > 60 ml/min 07/02/19 23:44 12 % 07/02/19 23:44 Glucose 283 mg/dL (65-100) H 07/02/19 23:44 POC Glucose 238 (70-105) H 07/04/19 11:45 Calcium 8.3 mg/dL (8.4-10.2) L 07/02/19 23:44 Blood Type B POSITIVE 07/03/19 08:08 Antibody Screen Negative 07/03/19 08:08 Crossmatch See Detail 07/03/19 08:08 Active Medications - Current Medications Current Medications: Generic Name Dose Route Start Last Admin Trade Name Freq PRN Reason Stop Dose Admin Dextrose 50 ml 07/03/19 02:58 D50w (25gm) Syringe IV PRN PRN Hypoglycemia Sodium Chloride 1,000 mls @ 125 mls/hr 07/03/19 03:00 07/04/19 07:27 Nacl 0.9% 1000 Ml IV 125 mls/hr DIRECT LITA Administration Sodium Chloride 500 mls @ 0 mls/hr 07/04/19 11:21 Nacl 0.9% 500 Ml IV 07/04/19 23:59 ONCE NR As Directed Insulin Glargine 10 units 07/03/19 22:00 07/03/19 22:56 Lantus SUB-Q 10 units QHS LITA Administration Insulin Human Regular 0 units 07/03/19 03:00 07/04/19 09:07 Humulin R SUB-Q Not Given Q4HR [facility] Protocol Morphine Sulfate 2 mg 07/03/19 03:01 Morphine IV Q4H PRN Pain, Moderate (4-6) Ondansetron HCl 4 mg 07/03/19 03:02 07/04/19 07:23 Zofran IV 4 mg Q8H PRN Administration Nausea And Vomiting Pantoprazole Sodium 40 mg 07/03/19 04:00 07/04/19 09:07 Protonix IV 40 mg BID LITA Administration
--- NOTE | 2019-07-04 16:43 | Nuclear Medicine Report ---
NM GI bleeding scan INDICATION: GI bleed. TECHNIQUE: Reported blood cells were tagged with 20 mCi technetium 99 M ultra tagged and administered intravenou sly with subsequent planar imaging over the abdomen and pelvis. COMPARISON: CTA abdomen and pelvis from 07/03/2019. FINDINGS: Over the course of almost 1 hour of imaging, no suspicious focus of uptake suggestive of active bleed ing is identified. IMPRESSION: No scintigraphic evidence of an active GI bleed. Signer Name: Dwain Callahan MD Signed: 07/04/2019 4:39 PM Workstation Name: [id number]
--- NOTE | 2019-07-04 16:51 | Event Note ---
Date: 07/04/19 Reviewed CTA performed previously. No CTA evidence of GI bleeding. Recommended GI bleeding study which was negative. Recommend repeat GI bleeding study or GI bleeding protocol CT (noncontrast CT and CT angiography of the abdomen and pelvis) if repeat bleeding occurs. Angiography without either hemodynamic instability or positive screening test (GI bleeding study, or CTA) is not likely to find/treat the source of bleeding.
[2019-07-04] MEDS: INSULIN GLARGINE 100 UNITS/ML SUB-Q SCH (22:36)
[2019-07-05] MEDS: INSULIN REGULAR, HUMAN 100 UNITS/1 ML SUB-Q SCH ×5 (02:00→18:18)
[2019-07-05 08:51] LABS: Hemoglobin 6.6 gm/dl (10.1-14.3); Mean Corpuscular HGB Conc 34 % (30-34); Mean Corpuscular Volume 91 fl (79-97); Platelet Count 293 K/mm3 (140-440); Red Cell Distribution Width 14.7 % (13.2-15.2)
[2019-07-05] MEDS: PANTOPRAZOLE 40 MG INJ IV SCH ×2 (09:00→20:32)
[2019-07-05 09:01] LABS: INR 1.26 (0.87-1.13)
[2019-07-05 09:34] LABS: Hematocrit 19.1 % (30.3-42.9)
--- NOTE | 2019-07-05 10:01 | Gastroenterology Progress Note ---
Assessment and Plan This is a 54 yo female with recent admission for lower GI bleed s/p EGD and colonoscopy readmitted within 24 hr for recurrent bleeding with passing bright red blood per rectum with clots. -H/H 6.6/19.1- s/p 3 units PRBCs with inappropriate rise -continue to monitor H/H and transfuse as needed -patient with continued episodes of rectal bleeding this am with bright red blood -currently HD stable- monitor closely-low threshold to transfer to ICU if needed -s/p EGD/colonoscopy 07/01/19 that showed gastric polyps, hiatal hernia, nodule at GE junction (bx results pending; f/u in clinc), colon polyps, large amount of semi-old blood throughout the entire colon, and scattered diverticulosis throughout the whole colon (likely source of bleeding) -etiology-likely recurrent diverticular bleed -CTA on admission and bleeding scan yesterday negative -will order stat repeat bleeding scan today- if positive recommend IR consult for possible embolization -Keep NPO for now -surgery following -continue PPI and supportive care -will follow Subjective Date of service: 07/05/19 Principal diagnosis: GI bleed Interval history: Patient with multiple episodes of continued rectal bleeding this am with moderate amount of bright red blood. No hematemesis or melena. Denies abd pain, N/V, CP, or SOB. Currently HD stable. Objective - Constitutional Vitals: Temp Pulse Resp BP Pulse Ox 98.7 F 75 18 111/43 97 07/05/19 08:41 07/05/19 08:41 07/05/19 08:41 07/05/19 08:41 07/05/19 08:41 General appearance: mild distress, obese - EENT Eyes: PERRL, EOM intact ENT: hearing intact - Respiratory Respiratory effort: normal Respiratory: bilateral: CTA - Cardiovascular Rhythm: regular - Gastrointestinal General gastrointestinal: Present: soft, non-tender, non-distended, normal bowel sounds - Neurologic Neurological: alert and oriented x3 - Labs CBC & Chem 7: 07/05/19 08:25 07/02/19 23:44 Labs: Laboratory Results - last 24 hr 07/03/19 07/04/19 07/04/19 08:08 09:31 11:45 WBC RBC 1.80 L Hgb 5.5 L* D Hct 16.7 L* D MCV MCH MCHC RDW Plt Count PT INR POC Glucose 238 H Blood Type B POSITIVE Antibody Screen Negative Crossmatch See Detail 07/04/19 07/04/19 07/05/19 17:40 20:22 06:31 WBC RBC Hgb Hct MCV MCH MCHC RDW Plt Count PT INR POC Glucose 251 H 188 H 188 H Blood Type Antibody Screen Crossmatch 07/05/19 07/05/19 08:25 08:25 WBC 13.0 H RBC 2.10 L Hgb 6.6 L Hct 19.1 L* MCV 91 MCH 31 MCHC 34 RDW 14.7 Plt Count 293 PT 15.5 H INR 1.26 H POC Glucose Blood Type Antibody Screen Crossmatch
--- NOTE | 2019-07-05 11:16 | Event Note ---
Date: 07/05/19 GI bleeding study delayed images were positive. Patient coming to [employer] electro[employer] for angiography and possible embolization
[2019-07-05] MEDS ORDERED: SODIUM CHLORIDE 0.9% 500 ML 500 ML IV ONE (13:01)
[2019-07-05] MEDS ORDERED: ceFAZolin/Water 2 GM/20 ML 2 GM/20 ML SYRINGE IV ONE (13:08)
[2019-07-05] MEDS ORDERED: LIDOCAINE (2%) 20 MG/1 ML VIAL 20 ML MDV INFILTRATI ONE (13:11)
[2019-07-05] MEDS ORDERED: HEPARIN/NS 5000 UNIT/500ML 1,000 ML IR ONE (13:11)
[2019-07-05] MEDS: fentaNYL 100 MCG/2 ML INJ ONE ×2 (13:37→13:59)
[2019-07-05] MEDS: MIDAZOLAM 2 MG/2 ML INJ ONE ×2 (13:37→13:59)
--- NOTE | 2019-07-05 14:26 | Post Operative Note ---
Date of procedure: 07/05/19 Pre-op diagnosis: lower GI bleeding Post-op diagnosis: same Findings: High quality images obtained. No pseudoaneurysm or extravasation. Procedure: 1. Ultrasound guided access of the right common femoral artery 2. Selection of the celiac artery with angiography 3. Selection of the SMA with angiography 4. Selection of the ROXY with angiography 5. Angiography of the right lower extremity 6. Closure with a 6 Fr proglide Anesthesia: local (w/ conscious sedation) Surgeon: HARJINDER SKINNER Estimated blood loss: minimal Condition: stable
--- NOTE | 2019-07-05 14:28 | Operative Report ---
Operative Report Operative Report: EXAM: 1. Ultrasound guided access of the right common femoral artery 2. Selection of the celiac artery with angiography 3. Selection of the SMA with angiography 4. Selection of the ROXY with angiography 5. Angiography of the right lower extremity 6. Closure with a 6 Fr proglide DATE: 07/05/19 [facility] [employer] VICE PRESIDENT: HARJINDER SKINNER MD INDICATION: Abnormal GI bleeding study with active GI bleed on GI bleeding study and bright red blood per rectum with declining hemoglobin and hematocrit. MEDICATIONS: Please see nursing report for full details. DEVICES: None. CONTRAST: Please see nursing report for full details. PROCEDURE: The risks, benefits, and alternatives were discussed the patient; written informed consent was obtained. The groins were prepped and draped in a sterile fashion. Ultrasound is used to evaluate the right common femoral artery which was patent. Under direct ultrasound guidance, the right common femoral artery was accessed with a 21- gauge micropuncture needle. 0.018 inch wire was passed into the aorta. Needle was exchanged for transitional dilator. Wire was exchanged for 0.035 inch wire. Transitional dilator was exchanged for a 5 Arabic sheath. SOS2 catheter is used to select the celiac artery and digital subtraction angiography was performed. Catheter was used to select the SMA and digital subtraction angiography was performed. Catheter was used to select the ROXY and digital subtraction angiography was performed. After reviewing the imaging, all catheters were removed over 0.035 inch wires. Digital subtraction angiography through the sheath was performed demonstrating patency of the right external iliac artery, common femoral artery, proximal superficial femoral artery, and profunda femoral artery. The puncture was appropriate, above the bifurcation and below the inferior epigastric artery. Sheath was then exchanged for a 6 Arabic Pro-glide which was used to close the arteriotomy achieving immediate hemostasis. Sterile dressing applied. FINDINGS: Celiac artery: No evidence of extravasation or pseudoaneurysm. 3 vessel branching pattern typical of the celiac artery noted, but as described in the SMA report, there is an accessory right hepatic artery with appropriate lack of filling on the celiac angiogram. SMA: No extravasation or pseudoaneurysm. Accessory right hepatic artery noted. Multiple images were obtained to completely evaluate the SMA territory. ROXY: No extravasation or pseudoaneurysm. Multiple images were obtained to completely evaluate the ROXY territory. IMPRESSION: No evidence of extravasation or pseudoaneurysm on this mesenteric angiogram of the celiac artery, SMA, and ROXY.
--- NOTE | 2019-07-05 14:39 | Event Note ---
Date: 07/05/[address] Leos regarding angiogram results which were negative for active bleeding. Will repeat colonoscopy +/- EGD tomorrow for further evaluation (r/o post-polypectomy bleed vs other source). Okay for clears today then NPO after MN.
[2019-07-05] MEDS ORDERED: POLYETHYLENE GLYCOL/ELECT SOLN 4000 ML PO ONE (14:40)
--- NOTE | 2019-07-05 15:33 | Event Note ---
Date: 07/05/19 Read through events of the last 24 hours. Continues to slowly bleed while maintaining hemodynamic stability. s/p negative angio. Will continue to follow and see what repeat EGD and colonoscopy show.
[2019-07-05] MEDS: MORPHINE 2 MG/1 ML INJ IV PRN ×2 (15:44→20:32)
[2019-07-05] MEDS: ONDANSETRON 4 MG/2 ML INJ IV PRN ×2 (15:44→20:17)
[2019-07-05] MEDS ORDERED: SODIUM CHLORIDE 0.9% 500 ML 500 ML IV SCH (16:06)
--- NOTE | 2019-07-05 16:14 | Progress Note ---
Assessment and Plan - Patient Problems (1) Lower GI bleeding Current Visit: Yes Status: Acute Plan to address problem: Issue with lower GI bleed patient H&H remains 6 today. We'll transfusion additional 2 units after she is back from CT angiogram which was negative. Patient scheduled for EGD colonoscopy tomorrow. (2) Symptomatic anemia Current Visit: Yes Status: Acute Plan to address problem: Transfuse as indicated above. Follow-up GI evaluation. (3) Hyperglycemia due to type 2 diabetes mellitus Current Visit: No Status: Acute Plan to address problem: Issues blood sugar remains suboptimally controlled. We'll increase Lantus today to 15 units daily at bedtime. History Interval history: She today doing well concerns. able to tolerate clears. just finished angiogram is negative. spoke with her and the family about the procedure. Hospitalist Physical - Constitutional Vitals: Temp Pulse Resp BP Pulse Ox 98.7 F 76 18 111/43 98 07/05/19 08:41 07/05/19 12:18 07/05/19 12:18 07/05/19 08:41 07/05/19 12:18 General appearance: Present: no acute distress, well-nourished - EENT Eyes: Present: PERRL, EOM intact ENT: hearing intact, clear oral mucosa, dentition normal - Neck Neck: Present: supple, normal ROM - Respiratory Respiratory effort: normal Respiratory: bilateral: CTA - Cardiovascular Rhythm: regular - Extremities Extremities: no ischemia, pulses intact, pulses symmetrical, No edema, normal temperature, normal color Peripheral Pulses: within normal limits - Abdominal General gastrointestinal: soft, tender, no hepatomegaly, no splenomegaly - Integumentary Integumentary: Present: clear, warm, dry - Psychiatric Psychiatric: appropriate mood/affect, intact judgment & insight, memory intact - Neurologic Neurologic: CNII-XII intact, moves all extremities Results - Labs CBC & Chem 7: 07/05/19 08:25 07/02/19 23:44 Labs: Laboratory Last Values WBC 13.0 K/mm3 (4.5-11.0) H 07/05/19 08:25 RBC 2.10 M/mm3 (3.65-5.03) L 07/05/19 08:25 Hgb 6.6 gm/dl (10.1-14.3) L 07/05/19 08:25 Hct 19.1 % (30.3-42.9) L* 07/05/19 08:25 MCV 91 fl (79-97) 07/05/19 08:25 MCH 31 pg (28-32) 07/05/19 08:25 MCHC 34 % (30-34) 07/05/19 08:25 RDW 14.7 % (13.2-15.2) 07/05/19 08:25 Plt Count 293 K/mm3 (140-440) 07/05/19 08:25 Lymph % (Auto) 19.0 % (13.4-35.0) 07/04/19 09:31 [place] % (Auto) 5.3 % (0.0-7.3) 07/04/19 09:31 Eos % (Auto) 0.2 % (0.0-4.3) 07/04/19 09:31 Baso % (Auto) 0.5 % (0.0-1.8) 07/04/19 09:31 Lymph # 2.8 K/mm3 (1.2-5.4) 07/04/19 09:31 [place] # 0.8 K/mm3 (0.0-0.8) 07/04/19 09:31 Eos # 0.0 K/mm3 (0.0-0.4) 07/04/19 09:31 Baso # 0.1 K/mm3 (0.0-0.1) 07/04/19 09:31 Seg Neutrophils % 75.0 % (40.0-70.0) H 07/04/19 09:31 Seg Neutrophils # 11.0 K/mm3 (1.8-7.7) H 07/04/19 09:31 PT 15.5 Sec. (12.2-14.9) H 07/05/19 08:25 INR 1.26 (0.87-1.13) H 07/05/19 08:25 Sodium 141 mmol/L (137-145) 07/02/19 23:44 Potassium 4.1 mmol/L (3.6-5.0) 07/02/19 23:44 Chloride 105.7 mmol/L (98-107) 07/02/19 23:44 Carbon Dioxide 25 mmol/L (22-30) 07/02/19 23:44 Anion Gap 14 mmol/L 07/02/19 23:44 BUN 7 mg/dL (7-17) 07/02/19 23:44 Creatinine 0.6 mg/dL (0.7-1.2) L 07/02/19 23:44 Estimated GFR > 60 ml/min 07/02/19 23:44 BUN/Creatinine Ratio 12 % 07/02/19 23:44 Glucose 283 mg/dL (65-100) H 07/02/19 23:44 POC Glucose 199 (70-105) H 07/05/19 12:17 Calcium 8.3 mg/dL (8.4-10.2) L 07/02/19 23:44 Blood Type B POSITIVE 07/03/19 08:08 Antibody Screen Negative 07/03/19 08:08 Crossmatch See Detail 07/03/19 08:08 - Imaging and Cardiology Abdominal x-ray: report reviewed Active Medications - Current Medications Current Medications: Generic Name Dose Route Start Last Admin Trade Name Freq PRN Reason Stop Dose Admin Dextrose 50 ml 07/03/19 02:58 D50w (25gm) Syringe IV PRN PRN Hypoglycemia Sodium Chloride 1,000 mls @ 50 mls/hr 07/06/19 07:00 Nacl 0.9% 1000 Ml IV DIRECT LITA Sodium Chloride 500 mls @ 0 mls/hr 07/05/19 16:06 Nacl 0.9% 500 Ml IV 07/05/19 16:07 ONCE ONE As Directed Insulin Glargine 10 units 07/03/19 22:00 07/04/19 22:36 Lantus SUB-Q Not Given QHS [facility] Insulin Human Regular 0 units 07/03/19 03:00 07/05/19 14:00 Humulin R SUB-Q Not Given Q4HR [facility] Protocol Morphine Sulfate 2 mg 07/03/19 03:01 07/05/19 15:44 Morphine IV 2 mg Q4H PRN Administration Pain, Moderate (4-6) Ondansetron HCl 4 mg 07/03/19 03:02 07/05/19 15:44 Zofran IV 4 mg Q8H PRN Administration Nausea And Vomiting Pantoprazole Sodium 40 mg 07/03/19 04:00 07/05/19 09:00 Protonix IV 40 mg BID LITA Administration
[2019-07-06] MEDS: INSULIN GLARGINE 100 UNITS/ML SUB-Q SCH ×2 (00:25→22:32)
[2019-07-06] MEDS: INSULIN REGULAR, HUMAN 100 UNITS/1 ML SUB-Q SCH ×7 (00:25→22:33)
[2019-07-06] MEDS: PANTOPRAZOLE 40 MG INJ IV SCH ×3 (00:26→21:41)
[2019-07-06 07:33] LABS: Hematocrit 28.9 % (30.3-42.9); Hemoglobin 9.7 gm/dl (10.1-14.3)
--- NOTE | 2019-07-06 11:19 | Progress Note ---
Assessment and Plan slow GI bleed that remains hemodynamically stable. responded well to 4 units of blood given over the last 24 hours. reviewed delayed bleed scan with Dr. Marti in radiology who said he believes the bleed may be coming from the distal trans verse colon. Will await results of repeat endoscopy today. Discussed with patient at length about options if she re-bleeds and the location cannot be pin pointed to an exact area. Since imaging is suggestive of distal transverse colon, can offer to perform extended left hemicolectomy acknowledging that there is a chance she could bleed from segment of colon that remains. A sub-total colectomy is an option but has higher morbidity/mortality rate especially if having to be performed emergently. She says she would like to think about it for now. Will continue to follow. Subjective Date of service: 07/06/19 Patient Reports: Positive: no new complaints. Negative: blood in stool (pt attempted to take the bowel prep for today's egd and colonoscopy. she said she was unable to complete due to nausea. she mentions she did see blood off and on in her stool, the last few have been brown and liquid) Objective Vital Signs - 12hr 07/05/19 07/05/19 07/06/19 23:40 23:42 00:03 Temperature 98.2 F 98.2 F 98.2 F Pulse Rate 83 82 79 Respiratory 18 20 20 Rate Blood Pressure 148/69 133/65 140/68 O2 Sat by Pulse 99 99 99 Oximetry 07/06/19 07/06/19 07/06/19 00:53 01:03 02:47 Temperature 98.2 F 98.2 F 98.1 F Pulse Rate 72 87 70 Respiratory 18 18 18 Rate Blood Pressure 133/55 137/60 129/58 O2 Sat by Pulse 99 98 99 Oximetry 07/06/19 07/06/19 07/06/19 02:50 03:07 03:40 Temperature 98.4 F 98.4 F 98.4 F Pulse Rate 75 76 75 Respiratory 18 18 18 Rate Blood Pressure 138/71 147/68 125/87 O2 Sat by Pulse 99 98 98 Oximetry 07/06/19 07/06/19 07/06/19 04:15 05:48 06:20 Temperature 98.4 F 98.4 F Pulse Rate 65 65 72 Respiratory 18 18 Rate Blood Pressure 144/71 138/62 O2 Sat by Pulse 98 98 Oximetry 07/06/19 07:41 Temperature 98.4 F Pulse Rate 65 Respiratory 18 Rate Blood Pressure 155/70 O2 Sat by Pulse 85 Oximetry - General physical appearance well developed, well nourished, no distress - Respiratory normal expansion, normal respiratory effort - Abdomen soft, not tender, other - Labs 07/06/19 07:04 07/02/19 23:44
[2019-07-06] MEDS ORDERED: WATER FOR IRRIG STERILE 250 ML BOTTLE IR ONE ×3 (11:39→12:49)
[2019-07-06] MEDS ORDERED: WATER FOR IRRIG STERILE 1,000 ML BOTTLE ONE (11:39)
[2019-07-06] MEDS: SODIUM CHLORIDE 0.9% 1000 ML 1,000 ML IV SCH (12:10)
--- NOTE | 2019-07-06 12:14 | Anesthesia Consultation ---
Anesthesia Consult and Med Hx Date of service: 07/06/19 - Airway Anesthetic Teeth Evaluation: Good, Crowns ROM Head & Neck: Adequate Mental/Hyoid Distance: Adequate Mallampati Class: Class III Intubation Access Assessment: Possibly Difficult - Pre-Operative Health Status ASA Pre-Surgery Classification: ASA3 Proposed Anesthetic Plan: MAC - Pulmonary Hx Asthma: No COPD: No Hx Pneumonia: No - Gastrointestinal Hx Gastroesophageal Reflux Disease: Yes - Endocrine Hx End Stage Renal Disease: No Hx Non-Insulin Dependent Diabetes: Yes - Other Systems Hx Obesity: Yes (BMi 44.1)
--- NOTE | 2019-07-06 12:15 | Anesthesia Day of Surgery ---
Anesthesia Day of Surgery - Day of Surgery Patient Examined: Yes Patient H&P Reviewed: Yes Patient is NPO: Yes
[2019-07-06] MEDS ORDERED: PROPOFOL 200 MG/20 ML VIAL IV ONE ×3 (12:20→12:45)
[2019-07-06] MEDS ORDERED: LIDOCAINE MPF (2%) 20 MG/1 ML VIAL 5 ML ONE (12:30)
--- NOTE | 2019-07-06 12:55 | Operative Report ---
Operative Report Operative Report: DOS: 07/06/19 Endoscopist: Bob Perez MD COLONOSCOPY REPORT PREOPERATIVE AND POSTOPERATIVE DIAGNOSIS: GI Bleed DESCRIPTION OF PROCEDURE: The colonoscope was passed to the cecum identified by the appendiceal orifice and ICV. Scope was carefully withdrawn. Retroflexion was performed in the rectum. At the end of procedure, the scope was cleaned using normal technique. Vital signs monitored continuously throughout. SEDATION: Provided by Anesthesiology Services. Quality of the prep was fair COMPLICATIONS: None. ESTIMATED BLOOD LOSS: minimal FINDINGS: * TI could not be intubated due to looping. * No clear site of previous polypectomy in the cecum was identified. * Scattered diverticula throughout the colon, worse in the left colon than right colon. Left colon was better cleaned out. * A small diverticulum in the descending colon with old blood inside but no visible vessel or adherent clot noted * No blood was seen throughout the colon. * Moderate internal hemorrhoids seen on retroflexion view. RECOMMENDATIONS: Proceed with EGD If EGD negative, resume clear liquid diet and monitor H/H. Likely diverticular bleed, which has stopped at this time.
--- NOTE | 2019-07-06 13:06 | Operative Report ---
Operative Report Operative Report: DOS: 07/06/2019 Endoscopist: Bob Perez MD EGD with snare polypectomy and biopsy REPORT PREOPERATIVE DIAGNOSIS and POSTOPERATIVE DIAGNOSIS: GI bleed ESTIMATED BLOOD LOSS: minimal DESCRIPTION OF PROCEDURE: A high-resolution EGD scope was passed through the oropharynx, esophagus, stomach, and second portion of duodenum. The scope was carefully withdrawn. Retroflexion was performed in the stomach. At the end of the procedure, the scope was cleaned using normal technique. Vital signs monitored continuously throughout. SEDATION: Provided by Anesthesiology Services. COMPLICATIONS: None. FINDINGS: Normal duodenum exam without any bleeding noted. A 2 cm hiatal hernia. GE junction at 38 cm from the incisors. Mild erythema in the antrum. Otherwise, normal exam without any source of bleeding. RECOMMENDATIONS: No source for bleeding from EGD Resume clear liquid diet. Monitor H/H. Will follow.
--- NOTE | 2019-07-06 13:18 | Post Anesthesia Evaluation ---
- Post Anesthesia Evaluation Patient Participated: Yes Airway Patent: Yes Stable Respiratory Function: Yes Nausea/Vomiting: No Temp > 96.8F: Yes Pain Manageable: Yes Adequeate Hydration: Yes Anesthesia Complications: No
--- NOTE | 2019-07-06 15:21 | Progress Note ---
Assessment and Plan / Lower GI bleeding -s/p EGD/colonoscopy during last admission 07/01/19 that showed gastric polyps, hiatal hernia, nodule at GE junction (bx results pending; f/u in clinc), colon polyps, large amount of semi-old blood throughout the entire colon, and scattered diverticulosis throughout the whole colon (likely source of bleeding) -etiology-likely recurrent diverticular bleed -CTA on admission and repeat bleeding scan negative - no required intervention per IR and GS -s/p EGD and colonoscopy today - no acute findings -continue PPI and supportive care -will follow / Symptomatic anemia s/p total 7 units of PRBC transfusion follow h/h / Hyperglycemia due to type 2 diabetes mellitus Issues blood sugar remains suboptimally controlled. cont Lantus 15 units daily at bedtime along with SSI. /Morbid obesity, diet and exaercise recommendation when medically stable Brief History This is a 54 yo female with recent admission for lower GI bleed s/p EGD and colonoscopy readmitted within 24 hr for recurrent bleeding with passing bright red blood per rectum with clots. Hospitalist Physical General appearance: Present: no acute distress, well-nourished - EENT Eyes: Present: PERRL, EOM intact ENT: hearing intact, clear oral mucosa, dentition normal - Neck Neck: Present: supple, normal ROM - Respiratory Respiratory effort: normal Respiratory: bilateral: CTA - Cardiovascular Rhythm: regular - Extremities Extremities: no ischemia, pulses intact, pulses symmetrical, No edema, normal temperature, normal color Peripheral Pulses: within normal limits - Abdominal General gastrointestinal: soft, tender, no hepatomegaly, no splenomegaly - Integumentary Integumentary: Present: clear, warm, dry - Psychiatric Psychiatric: appropriate mood/affect, intact judgment & insight, memory intact - Neurologic Neurologic: CNII-XII intact, moves all extremities Subjective Date of service: 07/06/19 Principal diagnosis: GI bleed Interval history: Patient seen and examined no acute GI bleed today s/p EGD and colonoscopy w/o any acute findings patient denies any abdominal pain Objective - Constitutional Vitals: Vital Signs - 12hr 07/06/19 07/06/19 07/06/19 03:40 04:15 05:48 Temperature 98.4 F 98.4 F Pulse Rate 75 65 65 Respiratory 18 18 Rate Blood Pressure 125/87 144/71 O2 Sat by Pulse 98 98 Oximetry 07/06/19 07/06/19 07/06/19 06:20 07:41 12:07 Temperature 98.4 F 98.4 F 99.1 F Pulse Rate 72 65 76 Respiratory 18 18 25 H Rate Blood Pressure 138/62 155/70 191/72 O2 Sat by Pulse 98 85 97 Oximetry 07/06/19 07/06/19 07/06/19 12:13 12:50 13:05 Temperature 99.1 F 98.6 F Pulse Rate 76 88 81 Respiratory 25 H 18 81 H Rate Blood Pressure 191/72 155/82 162/73 O2 Sat by Pulse 97 100 100 Oximetry 07/06/19 07/06/19 13:20 14:00 Temperature Pulse Rate 78 74 Respiratory 78 H Rate Blood Pressure 155/71 O2 Sat by Pulse 97 Oximetry - Labs CBC & Chem 7: 07/07/19 04:52 07/07/19 04:52 Labs: Abnormal lab results 07/03/19 07/05/19 07/05/19 Range/Units 08:08 15:28 17:36 Hgb (10.1-14.3) gm/dl Hct (30.3-42.9) % POC Glucose 215 H 243 H (70-105) Crossmatch See Detail 07/05/19 07/06/19 07/06/19 Range/Units 22:06 06:50 07:04 Hgb 9.7 L D (10.1-14.3) gm/dl Hct 28.9 L D (30.3-42.9) % POC Glucose 240 H 163 H (70-105) Crossmatch 07/06/19 07/06/19 Range/Units 10:20 15:14 Hgb (10.1-14.3) gm/dl Hct (30.3-42.9) % POC Glucose 184 H 221 H (70-105) Crossmatch
[2019-07-06] MEDS: MORPHINE 2 MG/1 ML INJ IV PRN (19:32)
[2019-07-07] MEDS: INSULIN REGULAR, HUMAN 100 UNITS/1 ML SUB-Q SCH ×6 (03:05→22:00)
[2019-07-07 05:27] LABS: Basophils % (Auto) 0.3 % (0.0-1.8); Eosinophils % (Auto) 0.3 % (0.0-4.3); Hematocrit 28.3 % (30.3-42.9); Hemoglobin 9.5 gm/dl (10.1-14.3); Lymphocytes # (Auto) 1.8 K/mm3 (1.2-5.4); Mean Corpuscular HGB Conc 34 % (30-34); Mean Corpuscular Volume 87 fl (79-97); Monocytes # (Auto) 0.6 K/mm3 (0.0-0.8); Monocytes % (Auto) 6.6 % (0.0-7.3); Platelet Count 340 K/mm3 (140-440); Red Blood Count 3.25 M/mm3 (3.65-5.03); Red Cell Distribution Width 15.5 % (13.2-15.2)
[2019-07-07 06:18] LABS: BUN/Creatinine Ratio 5; Blood Urea Nitrogen 2 mg/dL (7-17); Calcium 7.7 mg/dL (8.4-10.2); Hemolysis Index 0
[2019-07-07] MEDS: MORPHINE 2 MG/1 ML INJ IV PRN ×5 (06:19→23:32)
[2019-07-07] MEDS ORDERED: POTASSIUM CHLORIDE ER 20 MEQ TAB PO NR (07:54)
[2019-07-07] MEDS: PANTOPRAZOLE 40 MG INJ IV SCH ×2 (10:23→22:01)
[2019-07-07] MEDS: POTASSIUM CHLORIDE 10 MEQ 10 MEQ/100 ML BAG IV SCH ×2 (10:25→10:26)
[2019-07-07] MEDS: SODIUM CHLORIDE 0.9% 1000 ML 1,000 ML IV SCH (10:35)
--- NOTE | 2019-07-07 10:38 | Progress Note ---
Assessment and Plan GI bleed with no clinical signs of active bleeding at the moment. maintains hemodynamic stability with stable H/H. Appreciate GI egd and colonoscopy done yesterday. no specific certain location of causative bleed. pt does not wish to have surgery at this time since she is feeling well and has not bled in 24 hours. advance diet as tolerated. will continue to follow. Subjective Date of service: 07/07/19 Patient Reports: Positive: no new complaints (no acute events overnight, no blood in stool since colonoscopy), feels better Objective Vital Signs - 12hr 07/06/19 07/07/19 07/07/19 22:45 02:04 03:17 Temperature 98.9 F 98.7 F Pulse Rate 74 74 72 Respiratory 16 18 Rate Blood Pressure 148/68 115/47 O2 Sat by Pulse 95 96 Oximetry 07/07/19 07/07/19 06:19 08:32 Temperature 98.6 F Pulse Rate 66 Respiratory 18 14 Rate Blood Pressure 165/67 O2 Sat by Pulse 96 Oximetry - General physical appearance well developed, well nourished, no distress - Respiratory normal expansion, normal respiratory effort - Abdomen soft, not tender - Labs 07/07/19 04:52 07/07/19 04:52 Diabetes panel 07/07/19 Range/Units 04:52 Sodium 143 (137-145) mmol/L Potassium 2.8 L* D (3.6-5.0) mmol/L Chloride 102.7 (98-107) mmol/L Carbon Dioxide 28 (22-30) mmol/L BUN 2 L (7-17) mg/dL Creatinine 0.4 L (0.7-1.2) mg/dL Glucose 186 H (65-100) mg/dL Calcium 7.7 L (8.4-10.2) mg/dL Calcium panel 07/07/19 Range/Units 04:52 Calcium 7.7 L (8.4-10.2) mg/dL Pituitary panel 07/07/19 Range/Units 04:52 Sodium 143 (137-145) mmol/L Potassium 2.8 L* D (3.6-5.0) mmol/L Chloride 102.7 (98-107) mmol/L Carbon Dioxide 28 (22-30) mmol/L BUN 2 L (7-17) mg/dL Creatinine 0.4 L (0.7-1.2) mg/dL Glucose 186 H (65-100) mg/dL Calcium 7.7 L (8.4-10.2) mg/dL Adrenal panel 07/07/19 Range/Units 04:52 Sodium 143 (137-145) mmol/L Potassium 2.8 L* D (3.6-5.0) mmol/L Chloride 102.7 (98-107) mmol/L Carbon Dioxide 28 (22-30) mmol/L BUN 2 L (7-17) mg/dL Creatinine 0.4 L (0.7-1.2) mg/dL Glucose 186 H (65-100) mg/dL Calcium 7.7 L (8.4-10.2) mg/dL
--- NOTE | 2019-07-07 12:39 | Gastroenterology Progress Note ---
Assessment and Plan This is a 54 yo female with recent admission for lower GI bleed s/p EGD and colonoscopy readmitted within 24 hr for recurrent bleeding with passing bright red blood per rectum with clots. # Lower Gi bleed - concerning for recurrent diverticular bleed, which has now stopped. - HD stable. H/H stable. - CTA on 07/03/2019 negative for signs of active bleeding. - Bleeding scan on 07/04/2019 negative. - CT angio on 07/05/2019 negative. - Repeat EGD and colonoscopy on 07/06/2019. Colonoscopy with scattered pandiverticulosis but no active bleeding. Rec - advance diet. - monitor H/H. - if H/H ok stable tomorrow and no bleeding, ok to discharge tomorrow with close follow up in GI clinic. Will plan for possible video capsule for small bowel work up. Subjective Date of service: 07/07/19 Principal diagnosis: GI bleed Interval history: No acute events o/n. She has brown stools overnight. Reports lower abdominal pain. Objective - Constitutional Vitals: Temp Pulse Resp BP Pulse Ox 98.6 F 70 14 165/67 96 07/07/19 08:32 07/07/19 10:00 07/07/19 08:32 07/07/19 08:32 07/07/19 08:32 - EENT ENT: hearing intact, clear oral mucosa - Neck Neck: supple, normal ROM - Respiratory Respiratory effort: normal Respiratory: bilateral: CTA - Cardiovascular Rhythm: regular - Extremities Extremities: pulses intact, No edema, normal color, Full ROM - Gastrointestinal General gastrointestinal: Present: soft, non-tender, non-distended, normal bowel sounds - Integumentary Integumentary: Present: clear, warm, dry - Neurologic Neurological: alert and oriented x3 - Labs CBC & Chem 7: 07/07/19 04:52 07/07/19 04:52 Labs: Laboratory Results - last 24 hr 07/06/19 07/06/19 07/06/19 15:14 18:29 20:37 WBC RBC Hgb Hct MCV MCH MCHC RDW Plt Count Lymph % (Auto) [place] % (Auto) Eos % (Auto) Baso % (Auto) Lymph # [place] # Eos # Baso # Seg Neutrophils % Seg Neutrophils # Sodium Potassium Chloride Carbon Dioxide Anion Gap BUN Creatinine Estimated GFR BUN/Creatinine Ratio Glucose POC Glucose 221 H 214 H 247 H Calcium 07/07/19 07/07/19 07/07/19 02:30 04:52 04:52 WBC 9.7 RBC 3.25 L Hgb 9.5 L Hct 28.3 L MCV 87 MCH 29 MCHC 34 RDW 15.5 H Plt Count 340 Lymph % (Auto) 19.0 [place] % (Auto) 6.6 Eos % (Auto) 0.3 Baso % (Auto) 0.3 Lymph # 1.8 [place] # 0.6 Eos # 0.0 Baso # 0.0 Seg Neutrophils % 73.8 H Seg Neutrophils # 7.1 Sodium 143 Potassium 2.8 L* D Chloride 102.7 Carbon Dioxide 28 Anion Gap 15 BUN 2 L Creatinine 0.4 L Estimated GFR > 60 BUN/Creatinine Ratio 5 Glucose 186 H POC Glucose 213 H Calcium 7.7 L 07/07/19 07/07/19 06:23 09:59 WBC RBC Hgb Hct MCV MCH MCHC RDW Plt Count Lymph % (Auto) [place] % (Auto) Eos % (Auto) Baso % (Auto) Lymph # [place] # Eos # Baso # Seg Neutrophils % Seg Neutrophils # Sodium Potassium Chloride Carbon Dioxide Anion Gap BUN Creatinine Estimated GFR BUN/Creatinine Ratio Glucose POC Glucose 229 H 158 H Calcium
--- NOTE | 2019-07-07 16:33 | Progress Note ---
Assessment and Plan / Lower GI bleeding -s/p EGD/colonoscopy during last admission 07/01/19 that showed gastric polyps, hiatal hernia, nodule at GE junction (bx results pending; f/u in clinc), colon polyps, large amount of semi-old blood throughout the entire colon, and scattered diverticulosis throughout the whole colon (likely source of bleeding) -etiology-likely recurrent diverticular bleed -CTA on admission and repeat bleeding scan negative - no required intervention per IR and GS -s/p EGD and colonoscopy on 07/06/19 - no acute findings -continue PPI and supportive care -will follow h/h, advance diet / Symptomatic anemia s/p total 7 units of PRBC transfusion follow h/h / Hyperglycemia due to type 2 diabetes mellitus Issues blood sugar remains suboptimally controlled. cont Lantus 15 units daily at bedtime along with SSI. /Morbid obesity, diet and exaercise recommendation when medically stable Disposition: tomorrow if h/h stable and tolerates regular diet Brief History This is a 54 yo female with recent admission for lower GI bleed s/p EGD and colonoscopy readmitted within 24 hr for recurrent bleeding with passing bright red blood per rectum with clots. Hospitalist Physical General appearance: Present: no acute distress, well-nourished - EENT Eyes: Present: PERRL, EOM intact ENT: hearing intact, clear oral mucosa, dentition normal - Neck Neck: Present: supple, normal ROM - Respiratory Respiratory effort: normal Respiratory: bilateral: CTA - Cardiovascular Rhythm: regular - Extremities Extremities: no ischemia, pulses intact, pulses symmetrical, No edema, normal temperature, normal color Peripheral Pulses: within normal limits - Abdominal General gastrointestinal: soft, tender, no hepatomegaly, no splenomegaly - Integumentary Integumentary: Present: clear, warm, dry - Psychiatric Psychiatric: appropriate mood/affect, intact judgment & insight, memory intact - Neurologic Neurologic: CNII-XII intact, moves all extremities Subjective Date of service: 07/07/19 Principal diagnosis: GI bleed Interval history: Patient seen and examined no acute GI bleed today patient denies any abdominal pain tolerating diet Objective - Constitutional Vitals: Vital Signs - 12hr 07/07/19 07/07/19 07/07/19 06:19 08:32 10:00 Temperature 98.6 F Pulse Rate 66 70 Respiratory 18 14 Rate Blood Pressure 165/67 O2 Sat by Pulse 96 Oximetry 07/07/19 12:19 Temperature 98.7 F Pulse Rate 79 Respiratory 16 Rate Blood Pressure 174/85 O2 Sat by Pulse 95 Oximetry - Labs CBC & Chem 7: 07/08/19 08:00 07/08/19 08:38 Labs: Abnormal lab results 07/06/19 07/06/19 07/07/19 Range/Units 18:29 20:37 02:30 RBC (3.65-5.03) M/mm3 Hgb (10.1-14.3) gm/dl Hct (30.3-42.9) % RDW (13.2-15.2) % Seg Neutrophils % (40.0-70.0) % Potassium (3.6-5.0) mmol/L BUN (7-17) mg/dL Creatinine (0.7-1.2) mg/dL Glucose (65-100) mg/dL POC Glucose 214 H 247 H 213 H (70-105) Calcium (8.4-10.2) mg/dL 07/07/19 07/07/19 07/07/19 Range/Units 04:52 04:52 06:23 RBC 3.25 L (3.65-5.03) M/mm3 Hgb 9.5 L (10.1-14.3) gm/dl Hct 28.3 L (30.3-42.9) % RDW 15.5 H (13.2-15.2) % Seg Neutrophils % 73.8 H (40.0-70.0) % Potassium 2.8 L* D (3.6-5.0) mmol/L BUN 2 L (7-17) mg/dL Creatinine 0.4 L (0.7-1.2) mg/dL Glucose 186 H (65-100) mg/dL POC Glucose 229 H (70-105) Calcium 7.7 L (8.4-10.2) mg/dL 07/07/19 07/07/19 Range/Units 09:59 14:38 RBC (3.65-5.03) M/mm3 Hgb (10.1-14.3) gm/dl Hct (30.3-42.9) % RDW (13.2-15.2) % Seg Neutrophils % (40.0-70.0) % Potassium (3.6-5.0) mmol/L BUN (7-17) mg/dL Creatinine (0.7-1.2) mg/dL Glucose (65-100) mg/dL POC Glucose 158 H 221 H (70-105) Calcium (8.4-10.2) mg/dL
[2019-07-07] MEDS: INSULIN GLARGINE 100 UNITS/ML SUB-Q SCH (22:01)
[2019-07-07] MEDS ORDERED: ACETAMINOPHEN 325 MG TAB PO PRN (23:48)
[2019-07-08 01:15] LABS: Bacteria,Urine 1+ /HPF (Negative); Bilirubin,Urine NEG (Negative); Blood,Urine NEG (Negative); Color,Urine Straw (Yellow); Mucus,Urine 1+ /HPF; Protein,Urine <15 mg/dL mg/dL (Negative); Urobilinogen,Urine < 2.0 mg/dL (<2.0)
[2019-07-08] MEDS: INSULIN REGULAR, HUMAN 100 UNITS/1 ML SUB-Q SCH ×3 (03:03→09:54)
[2019-07-08] MEDS: MORPHINE 2 MG/1 ML INJ IV PRN ×2 (05:58→09:54)
[2019-07-08 08:27] LABS: Hematocrit 30.5 % (30.3-42.9); Hemoglobin 10.4 gm/dl (10.1-14.3); Mean Corpuscular HGB Conc 34 % (30-34); Mean Corpuscular Volume 87 fl (79-97); Platelet Count 410 K/mm3 (140-440); Red Blood Count 3.53 M/mm3 (3.65-5.03); Red Cell Distribution Width 15.3 % (13.2-15.2)
--- NOTE | 2019-07-08 09:04 | Gastroenterology Progress Note ---
Assessment and Plan This is a 54 yo female with recent admission for lower GI bleed s/p EGD and colonoscopy readmitted within 24 hr for recurrent bleeding with passing bright red blood per rectum with clots. # Lower Gi bleed - concerning for recurrent diverticular bleed, which has now stopped. - HD stable. H/H stable. - CTA on 07/03/2019 negative for signs of active bleeding. - Bleeding scan on 07/04/2019 negative. - CT angio on 07/05/2019 negative. - Repeat EGD and colonoscopy on 07/06/2019. Colonoscopy with scattered pandiverticulosis but no active bleeding. - no signs of active bleeding. - H/H stable. Rec - advance diet. - ok for discharge per GI standpoint. Follow up outpatient for H/H check and possible video capsule study. Subjective Date of service: 07/08/19 Principal diagnosis: GI bleed Interval history: Reports no GI bleeding. Reports lower abdominal cramping pain. Objective - Constitutional Vitals: Temp Pulse Resp BP Pulse Ox 98.1 F 63 16 141/61 95 07/08/19 07:45 07/08/19 07:45 07/08/19 07:45 07/08/19 07:45 07/08/19 07:45 General appearance: no acute distress - EENT ENT: hearing intact - Respiratory Respiratory effort: normal - Cardiovascular Rhythm: regular Heart Sounds: Present: S1 & S2 - Gastrointestinal General gastrointestinal: Present: soft, tender, non-distended - Neurologic Neurological: alert and oriented x3 - Labs CBC & Chem 7: 07/08/19 08:00 07/07/19 04:52 Labs: Laboratory Results - last 24 hr 07/07/19 07/07/19 07/07/19 09:59 14:38 18:34 WBC RBC Hgb Hct MCV MCH MCHC RDW Plt Count POC Glucose 158 H 221 H 205 H Urine Color Urine Turbidity Urine pH Ur Specific [place] Urine Protein Urine Glucose (UA) Urine Ketones Urine Blood Urine Nitrite Urine Bilirubin Urine Urobilinogen Ur Leukocyte Esterase Urine WBC (Auto) Urine RBC (Auto) U Epithel Cells (Auto) Urine Bacteria (Auto) Urine Mucus 07/07/19 07/07/19 07/08/19 20:16 Unknown 03:02 WBC RBC Hgb Hct MCV MCH MCHC RDW Plt Count POC Glucose 187 H 197 H Urine Color Straw Urine Turbidity Clear Urine pH 8.0 H Ur Specific [place] 1.004 Urine Protein <15 mg/dl Urine Glucose (UA) Neg Urine Ketones Neg Urine Blood Neg Urine Nitrite Neg Urine Bilirubin Neg Urine Urobilinogen < 2.0 Ur Leukocyte Esterase Neg Urine WBC (Auto) 2.0 Urine RBC (Auto) 6.0 U Epithel Cells (Auto) 2.0 Urine Bacteria (Auto) 1+ Urine Mucus 1+ 07/08/19 07/08/19 05:54 08:00 WBC 10.4 RBC 3.53 L Hgb 10.4 Hct 30.5 MCV 87 MCH 29 MCHC 34 RDW 15.3 H Plt Count 410 POC Glucose 178 H Urine Color Urine Turbidity Urine pH Ur Specific [place] Urine Protein Urine Glucose (UA) Urine Ketones Urine Blood Urine Nitrite Urine Bilirubin Urine Urobilinogen Ur Leukocyte Esterase Urine WBC (Auto) Urine RBC (Auto) U Epithel Cells (Auto) Urine Bacteria (Auto) Urine Mucus
[2019-07-08] MEDS: PANTOPRAZOLE 40 MG INJ IV SCH (09:05)
[2019-07-08 09:23] LABS: BUN/Creatinine Ratio 6; Blood Urea Nitrogen 3 mg/dL (7-17); Calcium 7.9 mg/dL (8.4-10.2); Hemolysis Index 3
[2019-07-08] MEDS ORDERED: HYDROcodone/ACETAMINOPHEN 5-325 MG TAB PO PRN (10:00)
[2019-07-08] MEDS ORDERED: INSULIN REGULAR, HUMAN 100 UNITS/1 ML SUB-Q SCH (11:30)
--- NOTE | 2019-07-08 12:10 | Discharge Summary ---
Providers - Providers Date of Admission: 07/03/19 04:46 Date of discharge: 07/08/19 Attending physician: KORY LUONG 07/03/19 06:00 Consult to Physician [CONS] Routine Comment: Consulting Provider: HARJINDER HOOD Physician Instructions: Reason For Exam: RECTAL BLEEDING 07/04/19 11:24 Consult to Physician [CONS] Routine Comment: Consulting Provider: DACIA TRIMBLE Physician Instructions: Reason For Exam: Gi bleed Primary care physician: [employer] Hospitalization Condition: Fair Hospital course: This is a 54 yo female with recent admission for lower GI bleed s/p EGD and colonoscopy readmitted within 24 hr for recurrent bleeding with passing bright red blood per rectum with clots. She was admitted for further evaluation and Mx Discharge diagnosis and Mx: / Lower GI bleeding -s/p EGD/colonoscopy during last admission 07/01/19 that showed gastric polyps, hiatal hernia, nodule at GE junction (bx results pending; f/u in clinc), colon polyps, large amount of semi-old blood throughout the entire colon, and scattered diverticulosis throughout the whole colon (likely source of bleeding) -etiology-likely recurrent diverticular bleed -CTA on admission and repeat bleeding scan negative - no required intervention per IR and GS -s/p EGD and colonoscopy on 07/06/19 - no acute findings -continue PPI and supportive care -followed h/h and transfused total 7 units of PRBC, advanced diet - patient was then discharged home in stable condition with outpt followup / Symptomatic anemia due to GI bleed s/p total 7 units of PRBC transfusion / Hyperglycemia due to uncontrolled type 2 diabetes mellitus Adjusted insulin to Lantus 15 units daily at bedtime along with SSI. /Morbid obesity, diet and exercise recommendation provided as appropriate Disposition: Home with outpt f/u Hospitalist Physical General appearance: Present: no acute distress, well-nourished - EENT Eyes: Present: PERRL, EOM intact ENT: hearing intact, clear oral mucosa, dentition normal - Neck Neck: Present: supple, normal ROM - Respiratory Respiratory effort: normal Respiratory: bilateral: CTA - Cardiovascular Rhythm: regular - Extremities Extremities: no ischemia, pulses intact, pulses symmetrical, No edema, normal temperature, normal color Peripheral Pulses: within normal limits - Abdominal General gastrointestinal: soft, tender, no hepatomegaly, no splenomegaly - Integumentary Integumentary: Present: clear, warm, dry - Psychiatric Psychiatric: appropriate mood/affect, intact judgment & insight, memory intact - Neurologic Neurologic: CNII-XII intact, moves all extremities Disposition: DC-01 TO HOME OR SELFCARE Time spent for discharge: 34 minutes Core Measure Documentation - Palliative Care Palliative Care/ Comfort Measures: Not Applicable - Core Measures Any of the following diagnoses?: none Exam - Constitutional Vitals: Temp Pulse Resp BP Pulse Ox 98.1 F 67 16 141/61 95 07/08/19 07:45 07/08/19 10:00 07/08/19 07:45 07/08/19 07:45 07/08/19 07:45 Plan Activity: advance as tolerated Weight Bearing Status: Weight Bear as Tolerated Diet: low fat, low salt Follow up with: PRIMARY CARE, [Primary Care Provider] - 3-5 Days LATIA AMES MD [Staff Physician] - 7 Days Forms: Accompanied Note Prescriptions: Insulin Glargine [Lantus VIAL] 15 units SUB-Q QHS #10 ml Potassium Chloride [K-Dur] 20 meq PO QDAY #4 tablet HYDROcodone/APAP 5-325 [[place] 5-325 mg TAB] 1 each PO Q6H PRN #7 tablet PRN Reason: Pain, Moderate (4-6) Other Discharge Orders: Glucometer (Amb) Location: None Selected Glucometer supplies[Amb] Location: None Selected
[2019-07-08] MEDS ORDERED: POTASSIUM CHLORIDE ER 20 MEQ TAB PO SCH (13:00)
--- NOTE | 2019-07-08 13:03 | Progress Note ---
Assessment and Plan GI bleed, suspect diverticular bleed clinically no actively bleeding. stable, afebrile and tolerating diet. Being discharged today and following up with GI. Discussed with patient to follow up with surgery if she rebleeds, or she gets further testing that can localize exact area of bleeding and she would like to have that portion of colon resected electively. No intervention planned at this time. [phone] Subjective Date of service: 07/08/19 Patient Reports: Positive: no new complaints, feels better. Negative: blood in stool (no acute events over night) Objective Vital Signs - 12hr 07/08/19 07/08/19 07/08/19 02:56 07:45 10:00 Temperature 98.7 F 98.1 F Pulse Rate 66 63 67 Respiratory 18 16 Rate Blood Pressure 152/64 141/61 O2 Sat by Pulse 93 95 Oximetry - General physical appearance well developed, well nourished, no distress - Respiratory normal expansion, normal respiratory effort - Abdomen soft, not tender - Labs 07/08/19 08:00 07/08/19 08:38 Diabetes panel 07/08/19 Range/Units 08:38 Sodium 141 (137-145) mmol/L Potassium 3.4 L D (3.6-5.0) mmol/L Chloride 97.8 L (98-107) mmol/L Carbon Dioxide 29 (22-30) mmol/L BUN 3 L (7-17) mg/dL Creatinine 0.5 L (0.7-1.2) mg/dL Glucose 164 H (65-100) mg/dL Calcium 7.9 L (8.4-10.2) mg/dL Calcium panel 07/08/19 Range/Units 08:38 Calcium 7.9 L (8.4-10.2) mg/dL Pituitary panel 07/08/19 Range/Units 08:38 Sodium 141 (137-145) mmol/L Potassium 3.4 L D (3.6-5.0) mmol/L Chloride 97.8 L (98-107) mmol/L Carbon Dioxide 29 (22-30) mmol/L BUN 3 L (7-17) mg/dL Creatinine 0.5 L (0.7-1.2) mg/dL Glucose 164 H (65-100) mg/dL Calcium 7.9 L (8.4-10.2) mg/dL Adrenal panel 07/08/19 Range/Units 08:38 Sodium 141 (137-145) mmol/L Potassium 3.4 L D (3.6-5.0) mmol/L Chloride 97.8 L (98-107) mmol/L Carbon Dioxide 29 (22-30) mmol/L BUN 3 L (7-17) mg/dL Creatinine 0.5 L (0.7-1.2) mg/dL Glucose 164 H (65-100) mg/dL Calcium 7.9 L (8.4-10.2) mg/dL
[2019-07-08 13:50] VITALS: BP 108/42
[2019-07-08] MEDS ORDERED: PANTOPRAZOLE 40 MG TAB PO SCH (22:00)
== END 2019-07-08 16:59 | disposition home or self-care (01) | DRG 379 ==
LOC: ED 23:15 → 4A 07-03 04:46
PROVIDERS: ADMIT Internal Medicine; ATTEND Internal Medicine
PROC: 30233N1 Transfusion of Nonautologous Red Blood Cells into Peripheral Vein, Percutaneous Approach (ICD-10-PCS; 2019-07-03)
PROC: B44LZZZ Ultrasonography of Femoral Artery (ICD-10-PCS; principal; 2019-07-05)
PROC: B31N1ZZ Fluoroscopy of Other Upper Arteries using Low Osmolar Contrast (ICD-10-PCS; 2019-07-05)
PROC: B4151ZZ Fluoroscopy of Inferior Mesenteric Artery using Low Osmolar Contrast (ICD-10-PCS; 2019-07-05)
PROC: B4141ZZ Fluoroscopy of Superior Mesenteric Artery using Low Osmolar Contrast (ICD-10-PCS; 2019-07-05)
PROC: B41F1ZZ Fluoroscopy of Right Lower Extremity Arteries using Low Osmolar Contrast (ICD-10-PCS; 2019-07-05)
PROC: 0DJD8ZZ Inspection of Lower Intestinal Tract, Via Natural or Artificial Opening Endoscopic (ICD-10-PCS; 2019-07-06)
PROC: 0DJ08ZZ Inspection of Upper Intestinal Tract, Via Natural or Artificial Opening Endoscopic (ICD-10-PCS; 2019-07-06)
DX: K57.91 Diverticulosis of intestine, part unspecified, without perforation or abscess with bleeding (principal); D64.9 Anemia, unspecified; E11.65 Type 2 diabetes mellitus with hyperglycemia; K44.9 Diaphragmatic hernia without obstruction or gangrene; E66.01 Morbid (severe) obesity due to excess calories; Z90.49 Acquired absence of other specified parts of digestive tract; Z79.899 Other long term (current) drug therapy
CPT/HCPCS: 36245; 36415; 36430; 74174; 75726; 78278; 80048; 81001; 82962; 85014; 85018; 85025; 85027; 85610; 86850; 86900; 86901; 86920; 87040; 87116; G0378; A9560; C1760; C1769; C1887; C9113; J0690; J1642; J1644; J1815; J2250; J2270; J2405; J2704; J3010; J3480; J7030; J7040; P9016; Q9967